=== PATIENT | female | born 2005 | race Caucasian/White ===

== ENCOUNTER → 2024-03-12 06:24 | Day surgery (SDC) | payer BC, SELFPAY | LOC: GI 06:24 | PROVIDERS: ATTENDING PHYSICIAN Internal Medicine | DX: K92.1 Melena (principal); K64.8 Other hemorrhoids | CPT/HCPCS: 45378 ==

== ENCOUNTER → 2025-06-30 09:56 | Outpatient (REF) | payer BC, SELFPAY ==
[2025-07-06 22:36] LABS: Chlamydia trachomatis by TMA Negative (Negative); Neisseria gonorrhoeae by TMA Negative (Negative); Specimen Source Vaginal
== END ==
LOC: CLAB 09:56
PROVIDERS: ATTENDING PHYSICIAN Nurse Practitioner Adult Health
DX: Z01.419 Encounter for gynecological examination (general) (routine) without abnormal findings (principal); Z11.3 Encounter for screening for infections with a predominantly sexual mode of transmission
CPT/HCPCS: 87491; 87591